=== PATIENT | female | born 1995 | race American Indian/Alaskan Native ===

== ENCOUNTER 2022-06-27 19:57 | Emergency (ER) | payer OTHER ==
--- NOTE | 2022-06-27 20:59 | XRay Report ---
LEFT FOREARM 2 VIEW(S) INDICATION / CLINICAL INFORMATION: pain and swelling COMPARISON: None available. FINDINGS: BONES / JOINT(S): Nondisplaced oblique fracture of the mid to distal shaft of the left ulna with 9 mm of radial displacement of the distal fracture fragment. No radial fracture. No subluxation. No signi ficant arthritis. SOFT TISSUES: Moderate adjacent soft tissue swelling. ADDITIONAL FINDINGS: None. IMPRESSION: 1. Left ulna fracture. Signer Name: Shanda Leonard MD Signed: 06/27/2022 8:55 PM Workstation Name: [id number]
[2022-06-27] MEDS ORDERED: MORPHINE 4 MG/1 ML INJ IM ONE (21:44)
[2022-06-27] MEDS ORDERED: hydrOXYzine HCL 25 MG TAB PO ONE (21:44)
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
[2022-06-27] MEDS: NAPROXEN 375 MG TAB PO ONE ×2 (23:16→23:57)
[2022-06-28 00:21] VITALS: BP 116/71
== END 2022-06-28 00:21 | disposition home or self-care (01) ==
LOC: ED 19:57
DX: S52.202A Unspecified fracture of shaft of left ulna, initial encounter for closed fracture (principal); R56.9 Unspecified convulsions; Z91.09 Other allergy status, other than to drugs and biological substances; Z79.899 Other long term (current) drug therapy; V89.2XXA Person injured in unspecified motor-vehicle accident, traffic, initial encounter; Y93.89 Activity, other specified; Y92.89 Other specified places as the place of occurrence of the external cause; Y99.8 Other external cause status
CPT/HCPCS: 29125; 73090; 96372; 99284; J2270; Q0177